=== PATIENT | female | born 2000 | race Hispanic/Latino ===

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

== ENCOUNTER 2023-11-24 10:34 | Emergency (ER) | payer OTHER, BC ==
[~2023-11-24] VITALS: Ht 157.5 cm; Wt 59.0 kg
[~2023-11-24 10:34] MED LIST changes: +HYDROXYZ HCL25 MG PO
[2023-11-24 10:42] VITALS: BP 125/79
[2023-11-24] MEDS ORDERED: ACETAMINOPHEN 500 MG TAB PO ONE (10:55)
[2023-11-24 11:29] LABS: BASO% 0.6 % (0-3); EOS% 2.9 % (0-8); HEMATOCRIT 41.3 % (37.0-47.0); IMMATURE GRANULOCYTES 0.1 % (0.0-5.0); LYMPH% 28.8 % (15-41); MEAN CELL VOLUME 88.6 fL CALC (80.0-100.0); MEAN CORPUSCULAR HGB CONC 33.9 g/dL CAL (32.0-36.0); MONO% 3.8 % (2-13); NEUT# 4.33 thou/uL (2.00-7.15); NEUT% 63.8 % (42-76); RED BLOOD COUNT 4.66 mill/uL (4.20-5.60); RED CELL DISTRI WIDTH 12.3 % (11.5-15.5)
[2023-11-24 11:56] LABS: BILIRUBIN, TOTAL 1.2 mg/dL (0.02-1.3); CREATININE 0.7 mg/dL (0.5-1.0); POTASSIUM 4.2 mmol/l (3.5-5.1); TOTAL PROTEIN 8.5 g/dL (6.3-8.2)
[2023-11-24 14:50] VITALS: BP 125/79
== END 2023-11-24 14:56 | disposition home or self-care (01) | DRG 605 ==
LOC: ED 10:34
PROVIDERS: Family Medicine
DX: S50.12XA Contusion of left forearm, initial encounter (principal); V49.40XA Driver injured in collision with unspecified motor vehicles in traffic accident, initial encounter; M25.532 Pain in left wrist; M25.512 Pain in left shoulder; M54.2 Cervicalgia

== ENCOUNTER 2024-06-08 01:01 | Emergency (ER) | payer BC ==
[~2024-06-08] VITALS: Ht 157.5 cm; Wt 55.0 kg
[2024-06-08 01:09] VITALS: BP 114/75
[2024-06-08 01:15] VITALS: BP 118/73
[2024-06-08 01:32] LABS: BASO% 0.2 % (0-3); EOS% 1.6 % (0-8); HEMATOCRIT 39.6 % (37.0-47.0); HEMOGLOBIN 13.1 g/dl (12.0-16.0); IMMATURE GRANULOCYTES 0.1 % (0.0-5.0); LYMPH% 28.1 % (15-41); MEAN CELL VOLUME 90.2 fL CALC (80.0-100.0); MEAN CORPUSCULAR HGB 29.8 pG CALC (26.0-32.0); MEAN CORPUSCULAR HGB CONC 33.1 g/dL CAL (32.0-36.0); MONO% 6.8 % (2-13); NEUT# 6.04 thou/uL (2.00-7.15); NEUT% 63.2 % (42-76); RED BLOOD COUNT 4.39 mill/uL (4.20-5.60); RED CELL DISTRI WIDTH 11.8 % (11.5-15.5)
[2024-06-08 01:41] LABS: ALBUMIN 4.6 g/dL (3.2-5.0); BILIRUBIN, TOTAL 0.8 mg/dL (0.02-1.3); CREATININE 0.9 mg/dL (0.5-1.0); POTASSIUM 3.8 mmol/l (3.5-5.1); TOTAL PROTEIN 7.8 g/dL (6.3-8.2)
[2024-06-08] MEDS ORDERED: KETOROLAC TROMETHAMINE 30 MG/ML SDV IV ONE (02:55)
[2024-06-08 03:31] LABS: URINE BILIRUBIN - DIPSTICK Negative (NEGATIVE); URINE BLOOD DIPSTICK Moderate (NEGATIVE); URINE GLUCOSE - DIPSTICK Negative (NEGATIVE); URINE KETONE Negative (NEGATIVE); URINE NITRITE - DIPSTICK Negative (Negative); URINE PH 6.5 (4.5-8.0); URINE PROTEIN - DIPSTICK 30 mg/dL (NEG-TRACE); URINE UROBILINOGEN - DIPSTICK 0.2 E.U./dL (0.2)
[2024-06-08 03:32] LABS: URINE COLOR Yellow; URINE LEUK ESTERASE Moderate (NEGATIVE)
[2024-06-08 03:37] LABS: URINE BACTERIA MODERATE hpf; URINE SQUAMOUS EPITHELIAL CELL FEW EPI/hpf (0-FEW); URINE WBC 50-100 WBC/hpf (0-5)
[2024-06-08] MEDS ORDERED: ZOFRAN4 MG/TAB PO (04:18)
[2024-06-08] MEDS ORDERED: MACROBID100 M1 PO (04:18)
[2024-06-08] MEDS ORDERED: OMNICEF300 M1 PO (04:18)
[2024-06-08] MEDS ORDERED: Cefdinir 300 MG/CAP PO ONE (04:20)
[2024-06-08] MEDS ORDERED: NITROFURANTOIN MONOHYDRATE/MAC (MACROBID) 100 MG/CAP PO ONE (04:20)
[2024-06-08 04:21] VITALS: BP 118/73
== END 2024-06-08 04:30 | disposition home or self-care (01) | DRG 690 ==
LOC: ED 01:01
PROVIDERS: Family Medicine
DX: N12 Tubulo-interstitial nephritis, not specified as acute or chronic (principal); B96.20 Unspecified Escherichia coli [E. coli] as the cause of diseases classified elsewhere